=== PATIENT | female | born 1975 | race Caucasian/White ===

== ENCOUNTER 2021-04-20 19:31 | Outpatient (CLI) | payer BC, SELFPAY ==
--- NOTE | 2021-04-20 | DI.RAD_ITS ---
Exam(s) XR LUMBAR SPINE COMPLETE XR SACROILIAC JOINTS EXAM: XR LUMBAR SPINE COMPLETE CLINICAL HISTORY: LOW BACK PAIN M54.50 TECHNIQUE: COMPARISON: CR,XR XR SACROILIAC JOINTS from 04/20/2021 FINDINGS: Six views of the lumbosacral spine and 3 additional views of the SI joints were obtained. There is a transitional lumbosacral vertebral body. There are mild degenerative changes involving the vertebra l endplates and facet joints throughout the lumbar region. There is mild disc space narrowing at L5- L6. There is no evidence of acute fracture or dislocation. The SI joints are well maintained bilate rally. There appear to be mild degenerative changes of both hips. IMPRESSION: Degenerative changes, no evidence of acute process. RADIATION DOSE DELIVERED: Total DLP
--- NOTE | 2021-04-20 18:19 | DI.VRAD_ITS ---
PROCEDURE INFORMATION: Exam: XR Lumbosacral Spine Exam date and time: 04/20/2021 4:49 PM Age: 46 years old Clinical indication: Pain; Other: Lower back TECHNIQUE: Imaging protocol: XR of the lumbosacral spine. Views: 4 or 5 views. COMPARISON: No relevant prior studies available. FINDINGS: Bones/joints: There are 6 non rib-bearing lumbar vertebral bodies, anatomic variant. Vertebral body height is well preserved. No acute abnormality evident. Soft tissues: Unremarkable. IMPRESSION: No evidence for acute abnormality. Dictated and Authenticated by: Luciana Bueno MD. Ordering:FATUMA Pandey MD
--- NOTE | 2021-04-20 18:20 | DI.VRAD_ITS ---
PROCEDURE INFORMATION: Exam: XR Bilateral Sacroiliac Joints Exam date and time: 04/20/2021 4:49 PM Age: 46 years old Clinical indication: Pain; Other: Lower back TECHNIQUE: Imaging protocol: XR Bilateral XR of the sacroiliac joints. Views: 3 or more views. COMPARISON: CR XR LUMBAR SPINE COMPLETE 04/20/2021 5:14 PM FINDINGS: Bones/joints: There is a transitional vertebra at the S1 level. There is a left-sided pseudarthrosis involving the transverse process. The SI joints appear unremarkable. Soft tissues: Normal. IMPRESSION: Transitional vertebral body at S1 with left pseudoarthrosis of the transverse process. Dictated and Authenticated by: Luciana Bueno MD. Ordering:FATUMA Pandey MD
== END 2021-04-20 19:51 ==
PROVIDERS: PCP Family Medicine; Visit Provider Physician Assistant Medical
DX: M54.59 Other low back pain (principal); M51.36 Other intervertebral disc degeneration, lumbar region; M47.816 Spondylosis without myelopathy or radiculopathy, lumbar region; M16.0 Bilateral primary osteoarthritis of hip
CPT/HCPCS: 72110; 72202

== ENCOUNTER 2021-05-02 13:41 | Emergency (ER) | payer BC, SELFPAY ==
[2021-05-02 13:46] VITALS: BP 176/113; PULSE 116; RESP 16; TEMP 37.1; O2SAT 97
--- NOTE | 2021-05-02 14:42 | ED.GENADUL_ITS ---
Discharge Plan Disposition Patient Disposition: HOME Condition: Good Discharge Details Clinical Impression: Back pain with left-sided sciatica Primary Care Provider: Leonardo Anton ED Provider: Bakari Holman Home Meds and New Rx's Prescriptions: New gabapentin [Neurontin] 300 MG capsule 300 mg PO TID Qty: 90 RF: 0 Continued prednisone 20 mg tablet 20 mg PO DAILY RF: 0 amlodipine 5 mg tablet 5 mg PO DAILY RF: 0 tramadol 50 mg tablet 50 mg PO PRN PRNRF: 0 diazepam 10 mg tablet 10 mg PO PRN PRNRF: 0 diclofenac sodium 1 % gel TOPICAL RF: 0 levothyroxine 100 mcg tablet 200 mcg PO DAILY RF: 0 Discharge Instructions Instructions: Sciatica (ED) Additional Instructions: At this point your symptoms are consistent with sciatic pain. I suspect that there is impingement of the nerves as it travels through your piriformis muscle. Please take the steroid that was prescribed to you, and start taking the g abapentin as directed. Stretch the muscles of your buttock by flexing your hip 3-5 times a day in a stretching fashion. If the symptoms persist as we discussed together you may require further imaging but at this time I do feel it is reasonable to hold off the time being. If you notice any worsening of your symptoms, or any new symptoms such as vomiting, diarrhea, fever, chills, shortness of breath, chest pain, numbness, weakness, or fainting , please return immediately to the emergency department for reevaluation. Please follow up with your primary care provider as soon as possible for reassessment and reevaluation. As always, it was a pleasure participating in your medical care today. Referrals: Leonardo Anton [Primary Care Provider] - Discharge Data Discharge Date/Time-TO BE ENTERED AT DEPARTURE: 05/02/21 15:02 Medical Decision Making 46-year-old female presents today for evaluation of left buttock pain. Patient states that since around she has had pain in her left lower buttock region. The patient originally went to urgent care at that time, she was started on steroid burst, recommended NSAIDs. Since then she has had a gradual increase in persistence of the pain radiating down her left buttock and transitioning towards the leg. She denies pain when she is lying down or seated, but she has notable worsening of the symptoms when she sits up her right flexes her hip or changes position. She went to see the urgent care again today who recommended that the patient come to the ED for imaging. She denies any falls or trauma. She denies any heavy lifting. Patient denies any saddle anesthesia, numbness or tingling in the groin, change in sensation when wiping. Patient denies any bowel or bladder incontinence, leakage, or retention. Patient denies any weakness in the lower extremities, atypical falls or imbalance. No other complaints this time. Physical exam demonstrates no midline cervical thoracic or lumbar spine tenderness. No weakness in the lower extremities. Good strength, good reflexes, no saddle anesthesia. No red flags of bowel or bladder incontinence. Patient does have mild pain with straight leg leg raise on the left, and the pain radiates to the buttock itself. Symptoms at this time do not appear overly consistent with lumbar radiculopathy, but rather with sciatica. I do feel that restarting her steroid burst that she was previously on is reasonable, we will also start gabapentin as well. There is no emergent indication on exam at this time for emergent imaging, I did discuss with the patient and her significant other that the potential wait time currently for imaging would likely be at minimum 2 to 3 hours based on the current waiting time for imaging. Understanding this, through shared decision-making process family has elected to hold off on imaging for the time being. In the meantime we will continue the steroid burst, gabapentin, recommend stretching the gluteus muscles. We will follow-up closely and if the patient has continuing or worsening of pain she may require further repeat imaging. At this time though however there is no clinical evidence of cauda equina syndrome, severe lumbar discopathy or radiculopathy causing significant impingement. Discussed red flags which return. I have arianna rogers reviewed the treatment plan and discharge instructions with the patient and their family. I have addressed all patient concerns at this time. The patient and family was made aware of what symptoms to monitor for that would warrant a return to the emergency department. Discussed the plan with the patient and family, they demonstrate verbal understanding and agreement with our assessment and plan at this time. The documentation in this chart was dictated using [employer] dictation software. Please excuse any dictation errors. HPI General Date/Time Provider Initiated Documentation: 05/02/21 13:59 . HPI Narrative: 46-year-old female presents today for evaluation of left buttock pain. Patient states that since around she has had pain in her left lower buttock region. The patient originally went to urgent care at that time, she was started on steroid burst, recommended NSAIDs. Since then she has had a gradual increase in persistence of the pain radiating down her left buttock and transitioning towards the leg. She denies pain when she is lying down or seated, but she has notable worsening of the symptoms when she sits up her right flexes her hip or changes position. She went to see the urgent care again today who recommended that the patient come to the ED for imaging. She denies any falls or trauma. She denies any heavy lifting. Patient denies any saddle anesthesia, numbness or tingling in the groin, change in sensation when wiping. Patient denies any bowel or bladder incontinence, leakage, or retention. Patient denies any weakness in the lower extremities, atypical falls or imbalance. No other complaints this time. Related Data Home Medications Medication Instructions Recorded Confirmed amlodipine 5 mg PO DAILY 05/02/21 05/02/21 diazepam 10 mg PO PRN PRN 05/02/21 05/02/21 diclofenac sodium TOPICAL 05/02/21 05/02/21 gabapentin [Neurontin] 300 mg PO TID #90 cap 05/02/21 levothyroxine 200 mcg PO DAILY 05/02/21 05/02/21 prednisone 20 mg PO DAILY 05/02/21 05/02/21 tramadol 50 mg PO PRN PRN 05/02/21 05/02/21 Previous Rx's Medication Instructions Recorded gabapentin [Neurontin] 300 mg PO TID #90 cap 05/02/21 Allergies Allergy/AdvReac Type Severity Reaction Status Date / Time Penicillins Allergy Unverified 05/02/21 13:53 Sulfa (Sulfonamide Allergy Unverified 05/02/21 13:53 Antibiotics) General Stated Complaint: Nk/Back Pain SUDARSHAN: 3 Review of Systems All systems reviewed & are unremarkable except as noted in HPI and below PFSH All Active Problems Back pain with left-sided sciatica (Acute) Social History Smoking/Tobacco Use Status: Never Smoking risk assessment performed?: Yes Substance use type: does not use Do you feel safe at home: No Do you feel safe in your relationship?: No Exam Narrative Exam Narrative: 1.Const: Well-nourished, Well-developed, appearing stated age 2.Eyes: PERRL, no conjunctival injection, and symmetrical lids. 3.ENT: Atraumatic external nose and ears. Moist MM. Neck: Symmetric, trachea midline, No thyromegaly. 4.CVS: +S1/S2, No murmurs or gallops. Peripheral pulses 2+ and equal in all extremities. Brisk capillary refill in all extremities. 5.RESP: Unlabored respiratory effort. Clear to auscultation bilaterally. No wheezes rales or rhonchi 6.GI: Soft, Nontender/Nondistended, No hepatosplenomegaly. No guarding or re bound. 7.MSK: Normocephalic/Atraumatic, Extremities w/o deformity or ttp No cyanosis or clubbing, Normal movement of all extremities No midline tenderness to palpation over the CTLS spine. Normal ROM in flexion, extension, side bend, and rotation. Patient has +5 out of 5 strength in the lower extremities in dorsiflexion and plantarflexion, knee flexion and extension, hip flexion and extension. Normal strength for dorsiflexion and plantar flexion of the great toe bilaterally. There is +2 over 2 dorsalis pedis pulses bilaterally. There is normal sensation to the skin with light touch at the foot, knee, and hip. Normal saddle sensation. Good sensation over the deep sural nerve area bilaterally. Rectal exam deferred. Reflexes are +2 over 4 in the patellar reflex bilaterally. 8.Skin: Warm, Dry. No rashes or lesions. 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 Sensation grossly intact, no focal neurologic deficits. 10.Psych: (AAO) x3. Appropriate mood and affect Course Vital Signs Vital signs: Vital Signs Temperature 37.1 C 05/02/21 13:46 Pulse 116 H 05/02/21 13:46 Respiratory Rate 16 05/02/21 13:46 Blood Pressure 176/113 H 05/02/21 13:46 Pulse Oximetry 97 05/02/21 13:46 Temperature 37.1 C 05/02/21 13:46 Temperature Source Oral 05/02/21 13:46 Pulse 116 H 05/02/21 13:46 Respiratory Rate 16 05/02/21 13:46 Blood Pressure 176/113 H 05/02/21 13:46 Blood Pressure Position Sitting 05/02/21 13:46 Pulse Oximetry 97 05/02/21 13:46 Oxygen Delivery Method Room Air 05/02/21 13:46 Oxygen Flow Rate 0 05/02/21 13:46 Pain Level 6 05/02/21 13:46
--- NOTE | 2021-05-02 14:48 | NUR.NOTE ---
Nursing Note: referral to cm for expedited follow up with pcp
[2021-05-02 14:59] VITALS: BP 176/113; PULSE 116; RESP 16; TEMP 37.1; O2SAT 97
== END 2021-05-02 15:02 | disposition home or self-care (01) ==
PROVIDERS: Emergency Provider Student in an Organized Health Care Education/Training Program; PCP Family Medicine
DX: M54.42 Lumbago with sciatica, left side (principal)
CPT/HCPCS: 99283

== ENCOUNTER 2021-05-05 20:39 | Outpatient (REF) | payer BC, SELFPAY ==
[2021-05-05 19:42] LABS: HCT 40.9 % (36.0-46.0); HGB 13.5 g/dL (11.2-15.7); MCH 32.9 pg (27.0-33.0); MCV 99.8 fL (80-95); MPV 8.9 fL (8.0-11.0); Platelet Count 385 10^3/uL (130-400); RDW 13.8 % (11.7-14.6); RDW-SD 50.4 fL; WBC 13.79 10^3/uL (4.4-10.8)
[2021-05-05 20:31] LABS: ALT 35 U/L (14-59); AST 16 U/L (15-37); Albumin 4.2 g/dL (3.4-5.0); Alkaline Phosphatase 70 U/L (46-116); Anion Gap 9.3 mmol/L (3-11); BUN 28 mg/dL (7-18); Bilirubin, Total 0.3 mg/dL (0.2-1.0); CO2 25.7 mmol/L (21.0-32.0); Chloride 102 mmol/L (98-107); Estimated GFR 59.96 (mL/min/1.73m2); Glucose 205 mg/dL (74-106); Potassium 4.3 mmol/L (3.5-5.1); Sodium 137 mmol/L (136-145); TSH 18.94 uIU/mL (0.36-3.74); Total Protein 7.6 g/dL (6.4-8.2)
== END 2021-05-05 20:40 | disposition home or self-care (01) ==
LOC: LBN 20:39
PROVIDERS: PCP Family Medicine; Visit Provider Nurse Practitioner Family
DX: E03.9 Hypothyroidism, unspecified (principal); I10 Essential (primary) hypertension
CPT/HCPCS: 80053; 85027; 84443

== ENCOUNTER 2021-06-23 13:21 | Outpatient (REF) | payer BC, SELFPAY ==
[2021-06-23 13:41] LABS: Calculated LDL 125 mg/dL (<100); Cholesterol 217 mg/dL (<200); HDL Cholesterol 63 mg/dL (40-60); Triglyceride 147 mg/dL (<150)
[2021-06-23 13:52] LABS: Hemoglobin A1C 5.8 % (<5.7)
== END 2021-06-23 13:22 | disposition home or self-care (01) ==
LOC: NCHCN 13:21
PROVIDERS: PCP Family Medicine; Visit Provider Nurse Practitioner Family
DX: I10 Essential (primary) hypertension (principal); M54.16 Radiculopathy, lumbar region; M79.89 Other specified soft tissue disorders
CPT/HCPCS: 80061; 83036

== ENCOUNTER 2021-07-14 15:47 | Outpatient (REF) | payer BC, SELFPAY ==
[2021-07-14 14:53] LABS: Hemoglobin A1C 5.9 % (<5.7)
[2021-07-14 15:19] LABS: Anion Gap 11.1 mmol/L (3-11); BUN 23 mg/dL (7-18); CO2 24.9 mmol/L (21.0-32.0); Calcium 9.3 mg/dL (8.5-10.1); Chloride 105 mmol/L (98-107); Estimated GFR 59.96 (mL/min/1.73m2); Glucose 101 mg/dL (74-106); Potassium 4.1 mmol/L (3.5-5.1); Sodium 141 mmol/L (136-145); TSH 12.28 uIU/mL (0.36-3.74)
== END 2021-07-14 15:48 | disposition home or self-care (01) ==
LOC: NCHCN 15:47
PROVIDERS: PCP Family Medicine; Visit Provider Nurse Practitioner Family
DX: Z00.00 Encounter for general adult medical examination without abnormal findings (principal); E03.9 Hypothyroidism, unspecified; I10 Essential (primary) hypertension
CPT/HCPCS: 80048; 83036; 84443

== ENCOUNTER 2021-10-13 14:26 | Outpatient (REF) | payer BC, SELFPAY ==
[2021-10-13 19:09] LABS: Hemoglobin A1C 5.9 % (<5.7)
[2021-10-13 19:19] LABS: TSH 60.25 uIU/mL (0.36-3.74)
== END 2021-10-13 14:27 | disposition home or self-care (01) ==
LOC: NCHCN 14:26
PROVIDERS: PCP Family Medicine; Visit Provider Nurse Practitioner Family
DX: E03.9 Hypothyroidism, unspecified (principal); R73.03 Prediabetes
CPT/HCPCS: 83036; 84443

== ENCOUNTER 2022-09-07 15:07 | Outpatient (REF) | payer BC, SELFPAY ==
[2022-09-07 16:05] LABS: TSH 4.54 uIU/mL (0.36-3.74)
== END 2022-09-07 15:08 | disposition home or self-care (01) ==
LOC: NCHCN 15:07
PROVIDERS: PCP Family Medicine; Visit Provider Nurse Practitioner Family
DX: E03.9 Hypothyroidism, unspecified (principal)
CPT/HCPCS: 84443

== ENCOUNTER 2023-02-11 14:18 | Outpatient (REF) | payer BC, SELFPAY ==
[2023-02-11 16:22] LABS: ALT 17 U/L (14-59); AST 13 U/L (15-37); Albumin 3.5 g/dL (3.4-5.0); Alkaline Phosphatase 89 U/L (46-116); BUN 25 mg/dL (7-18); Bilirubin, Total 0.3 mg/dL (0.2-1.0); CREATININE 1.2 mg/dL (0.55-1.02); Calcium 9.5 mg/dL (8.5-10.1); Calculated LDL 151 mg/dL (<100); Chloride 103 mmol/L (98-107); Cholesterol 224 mg/dL (<200); Estimated GFR 56.54 (mL/min/1.73m2); Glucose 123 mg/dL (74-106); HDL Cholesterol 56 mg/dL (40-60); Potassium 3.9 mmol/L (3.5-5.1); Sodium 138 mmol/L (136-145); TSH 0.58 uIU/mL (0.36-3.74); Total Protein 7.6 g/dL (6.4-8.2); Triglyceride 89 mg/dL (<150)
[2023-02-11 16:37] LABS: Vitamin D 25 Total 20.3 ng/mL (30-100)
[2023-02-11 16:47] LABS: Hemoglobin A1C 6.3 % (<5.7)
== END 2023-02-11 14:19 | disposition home or self-care (01) ==
LOC: NCHCN 14:18
PROVIDERS: PCP Family Medicine; Visit Provider Nurse Practitioner Family
DX: I10 Essential (primary) hypertension (principal); E03.9 Hypothyroidism, unspecified; R73.03 Prediabetes; Z00.00 Encounter for general adult medical examination without abnormal findings
CPT/HCPCS: 80053; 80061; 82306; 83036; 84443

== ENCOUNTER 2023-06-07 11:06 | Outpatient (REF) | payer BC, SELFPAY ==
[2023-06-07 16:24] LABS: Anion Gap 8.2 mmol/L (3-11); BUN 20 mg/dL (7-18); CO2 28.8 mmol/L (21.0-32.0); Calcium 9.6 mg/dL (8.5-10.1); Chloride 104 mmol/L (98-107); Estimated GFR 69.93 (mL/min/1.73m2); Glucose 131 mg/dL (74-106); Potassium 4.9 mmol/L (3.5-5.1); Sodium 141 mmol/L (136-145)
[2023-06-07 17:04] LABS: Vitamin D 25 Total 26.1 ng/mL (30-100)
[2023-06-07 17:30] LABS: Hemoglobin A1C 5.8 % (<5.7)
== END 2023-06-07 11:07 | disposition home or self-care (01) ==
LOC: NCHCN 11:06
PROVIDERS: PCP Family Medicine; Referring Provider Nurse Practitioner Family; Visit Provider Nurse Practitioner Family
DX: R73.03 Prediabetes (principal); E55.9 Vitamin D deficiency, unspecified; R79.89 Other specified abnormal findings of blood chemistry
CPT/HCPCS: 80048; 82306; 83036